=== PATIENT | female | born 1965 | race Caucasian/White ===

== ENCOUNTER → 2020-03-13 | Outpatient (CLI) | payer OTHER, SELFPAY | END | disposition home or self-care (01) | LOC: LABSPEC 17:40 | PROVIDERS: PCP Internal Medicine; Referring Provider Clinical Nurse Specialist; Visit Provider Clinical Nurse Specialist | DX: Z11.59 Encounter for screening for other viral diseases (principal) | CPT/HCPCS: 87635; G2023; U0003 ==

== ENCOUNTER → 2020-06-12 14:17 | Outpatient (CLI) | payer OTHER, SELFPAY ==
[2020-06-12 15:49] LABS: AST(SGOT) 45 U/L (15-37); Alanine Aminotransfer ALT/SGPT 56 U/L (13-56); Anion Gap 7 (5-15); BUN 23 mg/dL (7-18); BUN/Creat Ratio 23.9 RATIO (10-20); Calcium,Total 8.7 mg/dL (8.5-10.1); Chloride 105 mmol/L (98-107); Creatinine, Serum 0.96 mg/dL (0.55-1.02); EST Glomerular Filtration Rate 64 mL/min (>60); Est Glom Filt Rate - Afr Amer 78 mL/min (>60); Glucose 162 mg/dL (74-106); Potassium 4.4 mmol/L (3.5-5.1); Sodium Level 138 mmol/L (136-145); Thyroid Stim Hormone (TSH) 0.55 uIU/mL (0.358-3.74)
== END ==
PROVIDERS: PCP Internal Medicine; Referring Provider Internal Medicine Endocrinology, Diabetes & Metabolism; Visit Provider Internal Medicine Endocrinology, Diabetes & Metabolism
DX: E89.0 Postprocedural hypothyroidism (principal); Z79.84 Long term (current) use of oral hypoglycemic drugs
CPT/HCPCS: 36415; 80048; 84443; 84450; 84460

== ENCOUNTER → 2020-07-15 10:07 | Outpatient (CLI) | payer OTHER, SELFPAY ==
--- NOTE | 2020-07-15 10:16 | RAD_ITS ---
STUDY: X-RAY CHEST REASON FOR EXAM: Female, 55 years old. SOB AND COUGH. TESTED POSITIVE FOR COVID ON June TECHNIQUE: PA and lateral views of the chest. COMPARISON: Comparison is made with prior study dated 12/04/2016. FINDINGS: The lungs are clear and expanded. There is no demonstrated pleural abnormality. Normal size heart. Normal mediastinum and steffen. Normal visualized pulmonary arteries. Normal visualized aortic arch and descending thoracic aorta. There are degenerative changes of the visualized thoracic spine. Normal visualized ribs, clavicles, and shoulders. There is no demonstrated abnormality of the visualized soft tissue structures of the upper abdomen. RAD/Chest PA and Lateral IMPRESSION: No acute abnormality is seen. Electronically Signed: Dat Srinivasan, at 10:34 EST , Service support ,
== END ==
PROVIDERS: PCP Internal Medicine; Visit Provider Clinical Nurse Specialist
DX: U07.1 COVID-19 (principal)
CPT/HCPCS: 71046

== ENCOUNTER → 2020-09-16 17:14 | Outpatient (CLI) | payer OTHER, SELFPAY ==
[2016-12-28 17:31] VITALS: BMI 37.8
[2020-09-16 17:51] LABS: Hemoglobin A1c 8.8 % (3.8-5.6)
[2020-09-16 18:04] LABS: AST(SGOT) 57 U/L (15-37); Alanine Aminotransfer ALT/SGPT 58 U/L (13-56); Anion Gap 8 (5-15); BUN 16 mg/dL (7-18); BUN/Creat Ratio 14.7 RATIO (10-20); Calcium,Total 8.6 mg/dL (8.5-10.1); Chloride 104 mmol/L (98-107); Creatinine, Serum 1.09 mg/dL (0.55-1.02); EST Glomerular Filtration Rate 56 mL/min (>60); Est Glom Filt Rate - Afr Amer 67 mL/min (>60); Glucose 182 mg/dL (74-106); Potassium 4.1 mmol/L (3.5-5.1); Sodium Level 136 mmol/L (136-145)
== END ==
PROVIDERS: PCP Internal Medicine; Referring Provider Internal Medicine Endocrinology, Diabetes & Metabolism; Visit Provider Internal Medicine Endocrinology, Diabetes & Metabolism
DX: E11.65 Type 2 diabetes mellitus with hyperglycemia (principal)
CPT/HCPCS: 36415; 80048; 83036; 84450; 84460

== ENCOUNTER → 2021-03-26 11:55 | Outpatient (CLI) | payer OTHER, SELFPAY ==
[2016-12-28 17:31] VITALS: BMI 37.8
[2021-03-26 13:03] LABS: AST(SGOT) 47 U/L (15-37); Alanine Aminotransfer ALT/SGPT 59 U/L (13-56)
[2021-03-26 13:07] LABS: Microalbumin,Random Urine 29.2 mg/L (NO RANGE EST.); Microalbumin:Creatinine Ratio 14.7 mg/g CRE (<30 mg/g CRE)
== END ==
PROVIDERS: PCP Internal Medicine; Referring Provider Internal Medicine Endocrinology, Diabetes & Metabolism; Visit Provider Internal Medicine Endocrinology, Diabetes & Metabolism
DX: I10 Essential (primary) hypertension (principal); E11.65 Type 2 diabetes mellitus with hyperglycemia; E78.2 Mixed hyperlipidemia
CPT/HCPCS: 36415; 82043; 82570; 84450; 84460

== ENCOUNTER → 2021-07-11 12:01 | Outpatient (CLI) | payer OTHER, SELFPAY ==
[2021-07-11 12:44] LABS: AST(SGOT) 65 U/L (15-37); Alanine Aminotransfer ALT/SGPT 71 U/L (13-56); Anion Gap 7 (5-15); BUN 20 mg/dL (7-18); BUN/Creat Ratio 19.8 RATIO (10-20); Calcium,Total 8.7 mg/dL (8.5-10.1); Chloride 107 mmol/L (98-107); Cholesterol 161 mg/dL (200); Creatinine, Serum 1.01 mg/dL (0.55-1.02); EST Glomerular Filtration Rate 61 mL/min (>60); Est Glom Filt Rate - Afr Amer 73 mL/min (>60); Glucose 194 mg/dL (74-106); High Density Lipoprotein 45 mg/dL; Potassium 4.5 mmol/L (3.5-5.1); Sodium Level 137 mmol/L (136-145); Triglycerides 176 mg/dL; Very Low Density Lipoprotein 35 mg/dL (5-40)
[2021-07-11 12:50] LABS: Hemoglobin A1c 8.8 % (3.8-5.6)
== END ==
PROVIDERS: PCP Internal Medicine; Visit Provider Internal Medicine Endocrinology, Diabetes & Metabolism
DX: E11.65 Type 2 diabetes mellitus with hyperglycemia (principal); E78.2 Mixed hyperlipidemia
CPT/HCPCS: 36415; 80048; 80061; 83036; 84450; 84460

== ENCOUNTER 2021-10-06 10:24 | Outpatient (CLI) | payer OTHER, SELFPAY ==
[2021-10-06 11:14] LABS: Hemoglobin A1c 8.7 % (3.8-5.6)
[2021-10-06 11:18] LABS: AST(SGOT) 68 U/L (15-37); Alanine Aminotransfer ALT/SGPT 64 U/L (13-56); Anion Gap 10 (5-15); BUN 15 mg/dL (7-18); BUN/Creat Ratio 13.9 RATIO (10-20); Calcium,Total 8.5 mg/dL (8.5-10.1); Chloride 106 mmol/L (98-107); Creatinine, Serum 1.08 mg/dL (0.55-1.02); EST Glomerular Filtration Rate 56 mL/min (>60); Est Glom Filt Rate - Afr Amer 68 mL/min (>60); Glucose 270 mg/dL (74-106); Potassium 4.5 mmol/L (3.5-5.1); Sodium Level 139 mmol/L (136-145)
== END 2021-10-06 23:59 | disposition short-term general hospital (02) ==
LOC: LAB 10:26
PROVIDERS: PCP Internal Medicine; Visit Provider Internal Medicine Endocrinology, Diabetes & Metabolism
DX: E11.65 Type 2 diabetes mellitus with hyperglycemia (principal)
CPT/HCPCS: 36415; 80048; 83036; 84450; 84460

== ENCOUNTER → 2021-12-30 | Outpatient (CLI) | payer OTHER, SELFPAY ==
[2021-12-30 17:37] LABS: AST(SGOT) 52 U/L (15-37); Alanine Aminotransfer ALT/SGPT 62 U/L (13-56); Anion Gap 5 (5-15); BUN 18 mg/dL (7-18); BUN/Creat Ratio 17.5 RATIO (10-20); Calcium,Total 8.7 mg/dL (8.5-10.1); Chloride 105 mmol/L (98-107); Creatinine, Serum 1.03 mg/dL (0.55-1.02); EST Glomerular Filtration Rate 59 mL/min (>60); Est Glom Filt Rate - Afr Amer 71 mL/min (>60); Glucose 152 mg/dL (74-106); Potassium 4.3 mmol/L (3.5-5.1); Sodium Level 136 mmol/L (136-145)
[2021-12-30 17:45] LABS: Hemoglobin A1c 8.2 % (3.8-5.6)
== END | disposition home or self-care (01) ==
LOC: LAB 16:42
PROVIDERS: PCP Internal Medicine; Visit Provider Internal Medicine Endocrinology, Diabetes & Metabolism
DX: E11.65 Type 2 diabetes mellitus with hyperglycemia (principal)
CPT/HCPCS: 36415; 80048; 83036; 84450; 84460

== ENCOUNTER → 2022-04-16 | Outpatient (CLI) | payer OTHER, SELFPAY ==
[2022-04-16 09:49] LABS: Absolute Neutrophil Count 3.5 X10^3/uL (2.0-7.7); Basophil# 0.03 X10^3/uL; Basophil% 0.5 % (0-1); Eosinophil# 0.41 X10^3/uL; Eosinophils% 6.9 % (0-5); Hematocrit 37.4 % (37-47); Hemoglobin 11.4 g/dL (12.0-15.0); Lymphocyte % 26.8 % (19-41); Mean Corp Hgb Conc 30.5 g/dL (32-36); Mean Corpuscular Hgb 25.6 pg (27.0-32.0); Mean Platelet Vol. 11.2 fl (6.2-12.0); Monocyte# 0.45 X10^3/uL; Monocyte% 7.5 % (0-10); NRBC Flagged by Analyzer 0 % (0-5); Neutrophil # 3.45 X10^3/uL (2.7-7.7); Neutrophil % 57.6 % (47-70); Platelet Count 219 K/mm3 (150-450); RBC Distribution Width SD 49.3 fl (35.1-43.9); Red Blood Count 4.45 M/mm3 (4.2-5.4)
[2022-04-16 10:06] LABS: Hemoglobin A1c 8.3 % (3.8-5.6)
[2022-04-16 10:11] LABS: Microalbumin,Random Urine 20.4 mg/L (NO RANGE EST.); Microalbumin:Creatinine Ratio 15.9 mg/g CRE (<30 mg/g CRE)
[2022-04-16 10:25] LABS: ALB/GLOB Ratio 1.1 RATIO (0.9-2.4); AST(SGOT) 70 U/L (15-37); Alanine Aminotransfer ALT/SGPT 66 U/L (13-56); Albumin, Serum 3.6 g/dL (3.2-5.0); Alkaline Phosphatase 50 U/L (45-117); Anion Gap 8 (5-15); BUN 18 mg/dL (7-18); BUN/Creat Ratio 15.8 RATIO (10-20); Calcium,Total 8.3 mg/dL (8.5-10.1); Chloride 103 mmol/L (98-107); Cholesterol 167 mg/dL (200); Creatinine, Serum 1.14 mg/dL (0.55-1.02); EST Glomerular Filtration Rate 52 mL/min (>60); Est Glom Filt Rate - Afr Amer 63 mL/min (>60); Globulin 3.3 g/dL (2.2-4.2); Glucose 209 mg/dL (74-106); High Density Lipoprotein 39 mg/dL; Potassium 4.4 mmol/L (3.5-5.1); Protein, Total 6.9 g/dL (6.4-8.2); Sodium Level 138 mmol/L (136-145); Thyroid Stim Hormone (TSH) 8.82 uIU/mL (0.358-3.74); Triglycerides 201 mg/dL; Very Low Density Lipoprotein 40 mg/dL (5-40)
[2022-04-18 08:02] LABS: Vitamin D,25 Hydroxy 31.7 ng/mL
== END | disposition home or self-care (01) ==
LOC: LAB 09:11
PROVIDERS: PCP Internal Medicine; Referring Provider Internal Medicine Endocrinology, Diabetes & Metabolism; Visit Provider Clinical Nurse Specialist
DX: E11.65 Type 2 diabetes mellitus with hyperglycemia (principal); E78.2 Mixed hyperlipidemia; E89.0 Postprocedural hypothyroidism; E03.9 Hypothyroidism, unspecified; I10 Essential (primary) hypertension; E55.9 Vitamin D deficiency, unspecified
CPT/HCPCS: 36415; 80053; 80061; 82043; 82306; 82570; 83036; 84443; 85025

== ENCOUNTER → 2023-04-12 | Outpatient (CLI) | payer OTHER, SELFPAY ==
--- NOTE | 2023-04-12 06:34 | ECHOD_ITS ---
Reason For Study: ABNORMAL EKG Procedure This was a 2D Doppler, Color Flow transthoracic echocardiogram. Exam performed in department. Left Ventricle Normal LV size. Mild concentric left ventricular hypertrophy. Left ventricular systolic function is normal. The estimated ejection fraction is 60 %. Diastolic function is indeterminate. Right Ventricle Normal RV size. Normal systolic function. Atria The left and right atria are normal. Mitral Valve Mild mitral annular calcification. There is no mitral valve stenosis. Trivial mitral valve insufficiency. Tricuspid Valve Normal tricuspid valve. Trivial tricuspid valve insufficiency. Unable to estimate RV systolic pressure due to insufficient tricuspid regurgitant envelope. Aortic Valve Trisinus/trileaflet aortic valve. Mild (1+) aortic valve insufficiency. Pulmonic Valve The pulmonic valve is not well visualized. Great Vessels Mildly dilated aortic root. Pericardium/Pleural No pericardial effusion. MMode/2D Measurements & Calculations LVIDd: 4.7 cm IVSd: 1.3 cm LVOT diam: 1.9 cm LVIDs: 2.9 cm LVPWd: 1.0 cm LVOT area: 2.9 cm2 RVDd: 3.2 cm FS: 37.4 % Ao root diam: 3.8 cm LAV(MOD-bp): 41.4 ml LVAd ap4: 28.3 cm2 LAV(MOD-bp) Indexed: 18.5 ml/m2 LVLd ap4: 7.8 cm LAV(MOD-sp2): 43.6 ml EDV(MOD-sp4): 82.8 ml LAV(MOD-sp4): 39.8 ml EDV(sp4-el): 87.1 ml LVAs ap4: 13.8 cm2 LVLs ap4: 6.1 cm ESV(MOD-sp4): 25.5 ml ESV(sp4-el): 26.3 ml EF(MOD-sp4): 69.2 % EF(sp4-el): 69.9 % LVAd ap2: 24.5 cm2 SV(MOD-sp4): 57.3 ml SV(MOD-sp2): 37.6 ml LVLd ap2: 7.8 cm EDV(MOD-sp2): 61.9 ml EDV(sp2-el): 65.3 ml LVAs ap2: 13.3 cm2 LVLs ap2: 6.1 cm ESV(MOD-sp2): 24.2 ml ESV(sp2-el): 24.6 ml EF(MOD-sp2): 60.8 % SV(sp4-el): 60.9 ml LA dimension(2D): 3.9 cm LA A4 area: 16.3 cm2 RA A4 area: 15.4 cm2 TAPSE: 2.0 cm Time Measurements MV dec time: 0.12 sec Doppler Measurements & Calculations MV E max renzo: 106.0 cm/sec Lat Peak E' Renzo: 7.2 cm/sec Med Peak E' Renzo: 5.8 cm/sec MV A max renzo: 119.8 cm/sec E/E' lat: 14.6 E/E' med: 18.4 MV E/A: 0.88 Ao V2 max: 145.2 cm/sec AI max renzo: 465.4 cm/sec MV dec slope: 883.9 cm/sec2 Ao max P.4 mmHg AI max P.6 mmHg Ao V2 mean: 102.4 cm/sec Ao mean P.8 mmHg AI dec slope: 247.6 cm/sec2 Ao V2 VTI: 28.6 cm AI P1/2t: 550.5 msec AV (velocity ratio): 0.71 ISAC(I,D): 2.1 cm2 ISAC(V,D): 2.3 cm2 LV V1 max: 114.0 cm/sec SV(LVOT): 58.7 ml PA V2 max: 120.9 cm/sec LV V1 max P.2 mmHg PA max PG (full): 2.7 mmHg LV V1 mean P.6 mmHg LV V1 mean: 76.3 cm/sec LV V1 VTI: 20.5 cm ECHO/Echo Complete Interpretation Summary The estimated ejection fraction is 60 %. Mild concentric left ventricular hypertrophy. Diastolic function is indeterminate. Mild (1+) aortic valve insufficiency. Mildly dilated aortic root. Ordering Physician: Patricio Kennedy Referring Physician: Rossi Victor M.D. Performed By: Tobias, Corrina, RDCS
--- NOTE | 2023-04-13 12:31 | STRESSREP_ITS ---
Stress Test Report Date: 04/12/2023 Procedure: Pharmacologic stress nuclear imaging study Indications: Abnormal ECG Consent: Per the patient Procedure: The patient underwent pharmacologic (Regadenoson 0.4mg ) evaluation with a peak heart rate of 88 beats per minute (53%predicted maximal heart rate) and a peak blood pressure of 128/80 mmHg. The baseline ECG demonstrated sinus rhythm with right bundle branch block. The peak pharmacologic ECG demonstrated no diagnostic ischemic changes. [There were no cardiac dysrhythmias pretest, during pharmacologic infusion, or recovery]. [There was no complaint of chest discomfort during pharmacologic infusion or recovery]. The patient was injected with 14.8 millicuries of technetium 99m Cardiolite and subsequently rest SPECT Cardiolite nuclear imaging was obtained in the horizontal long, vertical long, and short axis views. The patient underwent pharmacologic (Regadenoson) evaluation. The patient was injected with 44.2 millicuries of technetium 99m Cardiolite and subsequently stress SPECT Cardiolite nuclear imaging was obtained in the horizontal long, vertical long, and short axis views. A gated Cardiolite study at peak stress was obtained. The examination was stopped secondary to completion of protocol. Rest and stress SPECT Cardiolite nuclear imaging status post realignment, normalization, and attenuation correction demonstrate no fixed or reversible perfusion defects. [There is end systolic thickening and brightening]. [The gated Cardiolite study demonstrates myocardial thickening and inward wall motion]. The reported LVEF is 61%. Impression: 1. Pharmacologic (Regadenoson) evaluation 2. Peak pharmacologic ECG with no diagnostic changes. 3. [There were no cardiac dysrhythmias pretest, during pharmacologic infusion, or recovery]. 5. [Rest and stress SPECT Cardiolite nuclear imaging demonstrate relative uniform tracer uptake and myocardial perfusion appearing within normal limits]. 6. The gated Cardiolite study reports an LVEF of 61%. This note was generated with [employer] software. It may contain incorrect words, spelling, and punctuation that were not noted in checking the note before signing.
== END | disposition home or self-care (01) ==
LOC: CVS 06:34
PROVIDERS: PCP Internal Medicine; Referring Provider Internal Medicine Cardiovascular Disease; Visit Provider Internal Medicine Cardiovascular Disease
DX: R06.09 Other forms of dyspnea (principal); R94.31 Abnormal electrocardiogram [ECG] [EKG]; I45.10 Unspecified right bundle-branch block; I34.1 Nonrheumatic mitral (valve) prolapse
CPT/HCPCS: 78452; 93017; 93306; A9500; A4216; J2785